=== PATIENT | female | born 1970 | race Caucasian/White ===

== ENCOUNTER → 2018-06-17 16:00 | Outpatient (CLI) | payer MEDICAID, SELFPAY ==
--- NOTE | 2018-06-17 15:57 | DI.REPORT_ITS ---
SYMPTOM/DIAGNOSIS: RT KNEE PAIN RIGHT KNEE: Three views. No acute fracture or dislocation is seen. Periarticular spurring is seen involving both the medial and lateral femoral tibial joint space. Well corticated osseous fragments are seen in the soft tissues lateral to the knee. These are nonspecific. They do not appear to be within the joint space. IMPRESSION: Mild degenerative changes of the right knee.
== END ==
PROVIDERS: PCP Physician Assistant Medical; Visit Provider Physician Assistant
DX: M25.561 Pain in right knee (principal); M17.11 Unilateral primary osteoarthritis, right knee; G89.29 Other chronic pain
CPT/HCPCS: 73562

== ENCOUNTER 2018-08-04 08:49 | Emergency (ER) | payer MEDICAID, SELFPAY ==
[2018-08-04 08:54] VITALS: BP 149/76; PULSE 73; RESP 16; TEMP 36.4; O2SAT 99
--- NOTE | 2018-08-04 09:24 | W.ED.GENAD ---
Discharge Plan Disposition Patient Disposition: HOME Condition: Stable Discharge Details Chief Complaint: Orthopedic Clinical Impression: Sprain of left wrist, Sprain of hand, left Primary Care Provider: Juanita Perez ED Provider: Ce Black Home Meds and New Rx's Prescriptions: Continue hydrochlorothiazide 25 MG tablet 25 mg PO DAILY RF: 0 bupropion HCl 300 MG tablet extended release 24 hr 450 mg PO DAILY RF: 0 buspirone 5 MG tablet 5 mg PO BID RF: 0 pregabalin [Lyrica] 100 MG capsule 100 mg PO HS RF: 0 zolpidem 12.5 MG tablet,ext release multiphase 12.5 mg PO HS RF: 0 loratadine 10 MG tablet 10 mg PO DAILY RF: 0 Discharge Instructions Instructions: Contusion in Adults (ED), Wrist Sprain (ED) Additional Instructions: Rest, ice, elevate left wrist as much as possible. Alternate Tylenol and Motrin as needed and directed for pain. Follow-up with your primary care doctor in 1 week for reevaluation. Return to the emergency department with any worsening or new concerning symptoms. Discharge Data Discharge Date/Time-TO BE ENTERED AT DEPARTURE: 08/04/18 09:30 Discharge Physician: Ce Black Medical Decision Making 48yo F w/ left wrist and hand pain for the past 10 days. 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 She denies left hand weakness or numbness. She denies any pain in left elbow or shoulder. She has some tenderness to palpation over the left dorsal wrist and hand but no evidence of trauma and normal to inspection. Neurovascular intact. No focal deficits. She did admit to some radiation of pain into the left fifth finger which could be radiation from patient but there is no focal deficit, elbow or wrist injury. Appears consistent likely with a strain likely from overuse as there is no evidence of trauma. Patient was offered x-ray but declines. She is only been taking Tylenol and Motrin once daily. She is instructed to take Motrin every 6 hours and Tylenol every 4 hours. She is instructed on ice, rest and will send home with wrist splint. She declines work note. Instructed to f/u with pcp as needed and instructed to return to the ER with any concerns. HPI General Mode of arrival: ambulatory. Date/Time Provider Initiated Documentation: 08/04/18 09:15. Limitations to Documentation: no limitations. Information obtained by: patient. HPI Narrative: Patient is a 48-year-old female presents with left wrist and hand pain for the past 10 days. She works as an ASSISTANT FRONT END MANAGER and does not recall specific injury but states she frequently lifts patients with a [employer] and sometimes hits her hand on equipment. She has been taking Tylenol and Motrin once daily without relief but has not taken it for the past few days. She denies any weakness or numbness in hand. She denies any pain in left shoulder or elbow. Past medical history: Depression, GERD, hypertension Surgical history: Cholecystectomy, knee surgery, shoulder surgery, tubal ligation, Carpal tunnel release b/l Social history: Smokes tobacco, rare alcohol, denies drugs Medications: BuSpar, hydrochlorthiazide, Lyrica, Ambien Allergies: None Related Data Home Medications Medication Instructions Recorded Confirmed bupropion HCl 450 mg PO DAILY 06/01/13 08/04/18 hydrochlorothiazide 25 mg PO DAILY 06/01/13 08/04/18 buspirone 5 mg PO BID 05/25/17 08/04/18 pregabalin [Lyrica] 100 mg PO HS 12/17/17 08/04/18 zolpidem 12.5 mg PO HS 12/17/17 08/04/18 loratadine 10 mg PO DAILY 05/08/18 08/04/18 Allergies Allergy/AdvReac Type Severity Reaction Status Date / Time No Known Allergies Allergy Unverified 05/08/18 00:24 General Stated Complaint: Orthopedic MARK: 5 Review of Systems Review of Systems All systems reviewed & are unremarkable except as noted in HPI and below Constitutional Denies chills, Denies excessive sweating, Denies fatigue, Denies fever(s), Denies weakness and Denies weight loss Eyes Reports system reviewed and no additional complaints, except as docu and Denies blurry vision ENT Denies vertigo, Denies dizziness, Denies otalgia, Denies nasal congestion, Denies sore throat and Denies throat swelling Cardiovascular Denies chest pain, Denies syncope, Denies rapid heart rate and Denies dyspnea Respiratory Denies dyspnea Gastrointestinal Denies abdominal pain, Denies diarrhea and Denies vomiting Genitourinary Denies hematuria, Denies dysuria and Denies flank pain Musculoskeletal Denies back pain, Reports arthralgias and Denies joint swelling Integumentary/Breasts Denies lesions and Denies rash Neurologic Denies behavioral changes, Denies confusion, Denies vertigo, Denies dizziness, Denies syncope and Denies weakness Psychiatric Denies behavioral changes, Denies confusion and Denies depression Endocrine Denies excessive sweating and Denies fatigue Hematologic/Lymphatic Denies easy bruising and Denies lymphadenopathy Allergic/Immunologic Denies throat swelling PFSH Family History Mother No problems noted. Father No problems noted. Medical History Depression Insomnia Morbid obesity hypertension Social History Smoking/Tobacco Use Status: Current every day Surgical History Cholecystectomy Ligation of fallopian tube Open Carpal Tunnel release Exam Const General: cooperative and healthy appearing Orientation: alert and awake HENMT Head: normal to inspection Ears: hearing grossly normal bilaterally and external ears normal General nose exam: external nose normal Face and sinus: normal facial exam Eyes General: appearance normal, both eyes and all related structures Eyelids: eyelids normal EOM: EOM intact bilaterally Neck Neck: normal visual inspection Resp Effort & Inspection: normal respiratory effort and able to speak in complete sentences Cardio Rate: regular rate Skin General skin exam: no rashes or lesions noted Neuro General: alert and awake Cognition: normal cognition Speech: speech normal Gait: normal gait Motor: muscle tone normal throughout, strength 5/5 throughout and other (Normal radial/median/ulnar nerve motor function bilaterally. ) Sensory Exam: no sensory deficits noted Extrem General: normal to inspection, full ROM and normal capillary refill Left upper extremity: wrist (Mild tenderness palpation on dorsal aspect but no evidence of ecchymosis, edema, deformity) and hand (Mild tenderness palpation on dorsal aspect but no ecchymosis, edema, erythema or evidence of trauma) Other: Left radial and ulnar pulses intact. Cap refill less than 2 seconds. Psych Appearance: grossly normal Mental Status: mental status grossly normal Speech and Movement: speech and movement normal Affect: normal affect Thought Process: normal Course Vital Signs Temperature 97.5 F L 08/04/18 08:54 Pulse 73 08/04/18 08:54 Respiratory Rate 16 08/04/18 08:54 Blood Pressure 149/76 H 08/04/18 08:54 Pulse Oximetry 99 08/04/18 08:54 Temperature 97.5 F L 08/04/18 08:54 Temperature Source Temporal Artery Scan 08/04/18 08:54 Pulse 73 08/04/18 08:54 Respiratory Rate 16 08/04/18 08:54 Respiratory Effort 08/04/18 08:56 Blood Pressure 149/76 H 08/04/18 08:54 Blood Pressure Position Sitting 08/04/18 08:54 Pulse Oximetry 99 08/04/18 08:54 Oxygen Delivery Method Room Air 08/04/18 08:54 Oxygen Flow Rate 0 08/04/18 08:54 Pain Level 5 08/04/18 08:54
--- NOTE | 2018-08-04 09:34 | ED.GENADUL_ITS ---
Discharge Plan Disposition Patient Disposition: HOME Condition: Stable Discharge Details Chief Complaint: Orthopedic Clinical Impression: Sprain of left wrist, Sprain of hand, left Primary Care Provider: Juanita Perez ED Provider: Ce Black Home Meds and New Rx's Prescriptions: Continue hydrochlorothiazide 25 MG tablet 25 mg PO DAILY RF: 0 bupropion HCl 300 MG tablet extended release 24 hr 450 mg PO DAILY RF: 0 buspirone 5 MG tablet 5 mg PO BID RF: 0 pregabalin [Lyrica] 100 MG capsule 100 mg PO HS RF: 0 zolpidem 12.5 MG tablet,ext release multiphase 12.5 mg PO HS RF: 0 loratadine 10 MG tablet 10 mg PO DAILY RF: 0 Discharge Instructions Instructions: Contusion in Adults (ED), Wrist Sprain (ED) Additional Instructions: Rest, ice, elevate left wrist as much as possible. Alternate Tylenol and Motrin as needed and directed for pain. Follow-up with your primary care doctor in 1 week for reevaluation. Return to the emergency department with any worsening or new concerning symptoms. Discharge Data Discharge Date/Time-TO BE ENTERED AT DEPARTURE: 08/04/18 09:30 Discharge Physician: Ce Black Medical Decision Making 48yo F w/ left wrist and hand pain for the past 10 days. 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 She denies left hand weakness or numbness. She denies any pain in left elbow or shoulder. She has some tenderness to palpation over the left dorsal wrist and hand but no evidence of trauma and normal to inspection. Neurovascular intact. No focal deficits. She did admit to some radiation of pain into the left fifth finger which could be radiation from patient but there is no focal deficit, elbow or wrist injury. Appears consistent likely with a strain likely from overuse as there is no evidence of trauma. Patient was offered x-ray but declines. She is only been taking Tylenol and Motrin once daily. She is instructed to take Motrin every 6 hours and Tylenol every 4 hours. She is instructed on ice, rest and will send home with wrist splint. She declines work note. Instructed to f/u with pcp as needed and instructed to return to the ER with any concerns. HPI General Mode of arrival: ambulatory . Date/Time Provider Initiated Documentation: 08/04/18 09:15 . Limitations to Documentation: no limitations . Information obtained by: patient . HPI Narrative: Patient is a 48-year-old female presents with left wrist and hand pain for the past 10 days. 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 She has been taking Tylenol and Motrin once daily without relief but has not taken it for the past few days. She denies any weakness or numbness in hand. She denies any pain in left shoulder or elbow. Past medical history: Depression, GERD, hypertension Surgical history: Cholecystectomy, knee surgery, shoulder surgery, tubal ligation, Carpal tunnel release b/l Social history: Smokes tobacco, rare alcohol, denies drugs Medications: BuSpar, hydrochlorthiazide, Lyrica, Ambien Allergies: None Related Data Home Medications Medication Instructions Recorded Confirmed bupropion HCl 450 mg PO DAILY 06/01/13 08/04/18 hydrochlorothiazide 25 mg PO DAILY 06/01/13 08/04/18 buspirone 5 mg PO BID 05/25/17 08/04/18 pregabalin [Lyrica] 100 mg PO HS 12/17/17 08/04/18 zolpidem 12.5 mg PO HS 12/17/17 08/04/18 loratadine 10 mg PO DAILY 05/08/18 08/04/18 Allergies Allergy/AdvReac Type Severity Reaction Status Date / Time No Known Allergies Allergy Unverified 05/08/18 00:24 General Stated Complaint: Orthopedic MARK: 5 Review of Systems Review of Systems All systems reviewed & are unremarkable except as noted in HPI and below Constitutional Denies chills, Denies excessive sweating, Denies fatigue, Denies fever(s), Denies weakness and Denies weight loss Eyes Reports system reviewed and no additional complaints, except as docu and Denies blurry vision ENT Denies vertigo, Denies dizziness, Denies otalgia, Denies nasal congestion, Denies sore throat and Denies throat swelling Cardiovascular Denies chest pain, Denies syncope, Denies rapid heart rate and Denies dyspnea Respiratory Denies dyspnea Gastrointestinal Denies abdominal pain, Denies diarrhea and Denies vomiting Genitourinary Denies hematuria, Denies dysuria and Denies flank pain Musculoskeletal Denies back pain, Reports arthralgias and Denies joint swelling Integumentary/Breasts Denies lesions and Denies rash Neurologic Denies behavioral changes, Denies confusion, Denies vertigo, Denies dizziness, Denies syncope and Denies weakness Psychiatric Denies behavioral changes, Denies confusion and Denies depression Endocrine Denies excessive sweating and Denies fatigue Hematologic/Lymphatic Denies easy bruising and Denies lymphadenopathy Allergic/Immunologic Denies throat swelling PFSH Family History Mother No problems noted. Father No problems noted. Medical History Depression Insomnia Morbid obesity hypertension Social History Smoking/Tobacco Use Status: Current every day Surgical History Cholecystectomy Ligation of fallopian tube Open Carpal Tunnel release Exam Const General: cooperative and healthy appearing Orientation: alert and awake HENMT Head: normal to inspection Ears: hearing grossly normal bilaterally and external ears normal General nose exam: external nose normal Face and sinus: normal facial exam Eyes General: appearance normal, both eyes and all related structures Eyelids: eyelids normal EOM: EOM intact bilaterally Neck Neck: normal visual inspection Resp Effort & Inspection: normal respiratory effort and able to speak in complete sentences Cardio Rate: regular rate Skin General skin exam: no rashes or lesions noted Neuro General: alert and awake Cognition: normal cognition Speech: speech normal Gait: normal gait Motor: muscle tone normal throughout, strength 5/5 throughout and other (Normal radial/median/ulnar nerve motor function bilaterally. ) Sensory Exam: no sensory deficits noted Extrem General: normal to inspection, full ROM and normal capillary refill Left upper extremity: wrist (Mild tenderness palpation on dorsal aspect but no evidence of ecchymosis, edema, deformity) and hand (Mild tenderness palpation on dorsal aspect but no ecchymosis, edema, erythema or evidence of trauma) Other: Left radial and ulnar pulses intact. Cap refill less than 2 seconds. Psych Appearance: grossly normal Mental Status: mental status grossly normal Speech and Movement: speech and movement normal Affect: normal affect Thought Process: normal Course Vital Signs Temperature 97.5 F L 08/04/18 08:54 Pulse 73 08/04/18 08:54 Respiratory Rate 16 08/04/18 08:54 Blood Pressure 149/76 H 08/04/18 08:54 Pulse Oximetry 99 08/04/18 08:54 Temperature 97.5 F L 08/04/18 08:54 Temperature Source Temporal Artery Scan 08/04/18 08:54 Pulse 73 08/04/18 08:54 Respiratory Rate 16 08/04/18 08:54 Respiratory Effort 08/04/18 08:56 Blood Pressure 149/76 H 08/04/18 08:54 Blood Pressure Position Sitting 08/04/18 08:54 Pulse Oximetry 99 08/04/18 08:54 Oxygen Delivery Method Room Air 08/04/18 08:54 Oxygen Flow Rate 0 08/04/18 08:54 Pain Level 5 08/04/18 08:54
== END 2018-08-04 09:30 | disposition home or self-care (01) ==
PROVIDERS: Emergency Provider Physician Assistant; PCP Physician Assistant Medical
DX: M70.842 Other soft tissue disorders related to use, overuse and pressure, left hand (principal); M70.832 Other soft tissue disorders related to use, overuse and pressure, left forearm; X50.3XXA Overexertion from repetitive movements, initial encounter; I10 Essential (primary) hypertension
CPT/HCPCS: 29125; 99283; L3908

== ENCOUNTER 2018-12-16 11:49 | Outpatient (REF) | payer MEDICAID, SELFPAY ==
[2018-12-16 22:24] LABS: ALT 40 U/L (12-78); AST 22 U/L (15-37); Albumin 3.4 g/dL (3.4-5.0); Alkaline Phosphatase 106 U/L (46-116); Anion Gap 6.4 mmol/L (3-11); BUN 12 mg/dL (7-18); Bilirubin, Total 0.1 mg/dL (0.2-1.0); CO2 29.6 mmol/L (21.0-32.0); Calcium 8.5 mg/dL (8.5-10.1); Chloride 105 mmol/L (98-107); Cholesterol 220 mg/dL (50-200); Glucose 113 mg/dL (70-100); HDL Cholesterol 39 mg/dL (40-60); LDL CHOLESTEROL 152 mg/dL (<100); Potassium 4.6 mmol/L (3.5-5.1); Sodium 141 mmol/L (136-145); Total Protein 7.2 g/dL (6.4-8.2); Triglyceride 242 mg/dL (30-150)
== END 2018-12-16 12:09 ==
LOC: NCHCN 11:49
PROVIDERS: PCP Physician Assistant Medical; Visit Provider Physician Assistant Medical
DX: E78.5 Hyperlipidemia, unspecified (principal); I10 Essential (primary) hypertension
CPT/HCPCS: 80053; 80061; 83721

== ENCOUNTER 2019-03-24 18:31 | Outpatient (REF) | payer MEDICAID, SELFPAY ==
[2019-03-24 22:12] LABS: ALT 31 U/L (12-78); AST 19 U/L (15-37); Albumin 3.7 g/dL (3.4-5.0); Alkaline Phosphatase 97 U/L (46-116); Anion Gap 9.8 mmol/L (3-11); BUN 9 mg/dL (7-18); Bilirubin, Total 0.2 mg/dL (0.2-1.0); CO2 31.2 mmol/L (21.0-32.0); CREATININE 0.65 mg/dL (0.55-1.02); Calcium 9.2 mg/dL (8.5-10.1); Calculated LDL 103; Chloride 100 mmol/L (98-107); Cholesterol 168 mg/dL (50-200); Glucose 99 mg/dL (70-100); HDL Cholesterol 42 mg/dL (40-60); Potassium 4.1 mmol/L (3.5-5.1); Sodium 141 mmol/L (136-145); Total Protein 7.5 g/dL (6.4-8.2); Triglyceride 119 mg/dL (30-150)
== END 2019-03-24 18:51 ==
LOC: NCHCN 18:31
PROVIDERS: PCP Physician Assistant Medical; Visit Provider Physician Assistant Medical
DX: E78.5 Hyperlipidemia, unspecified (principal)
CPT/HCPCS: 80053; 80061; 83721

== ENCOUNTER 2019-11-08 14:01 | Emergency (ER) | payer OTHER, SELFPAY ==
[2019-11-08 14:08] VITALS: BP 154/88; PULSE 81; RESP 18; TEMP 36.6; O2SAT 99
--- NOTE | 2019-11-08 14:43 | ED.GENADUL_ITS ---
Discharge Plan Disposition Patient Disposition: HOME Condition: Improving Discharge Details Chief Complaint: Orthopedic Clinical Impression: Contusion of foot Primary Care Provider: Juanita Perez ED Provider: Gamaliel Elena Home Meds and New Rx's Prescriptions: Continued hydrochlorothiazide 25 MG tablet 25 mg PO DAILY RF: 0 bupropion HCl 300 MG tablet extended release 24 hr 450 mg PO DAILY RF: 0 buspirone 5 MG tablet 5 mg PO BID RF: 0 pregabalin [Lyrica] 100 MG capsule 150 mg PO HS RF: 0 zolpidem 12.5 MG tablet,ext release multiphase 12.5 mg PO HS RF: 0 omeprazole 40 mg Capsule,Delayed Release(Dr/Ec) 40 mg PO DAILY RF: 0 tramadol 100 mg Tablet Extended Release 24 Hr 100 mg PO BID RF: 0 Discharge Instructions Instructions: Foot Contusion (ED) Additional Instructions: You were seen in the emergency department today for evaluation of an injury to your foot. You should rest and elevate it as much as possible. Ice it. Follow-up with your primary care provider if not getting better in the next 3 to 5 days. Return to the emergency department immediately if you develop any numbness, fevers, or for any other concerning or worsening symptoms at all. Medical Decision Making This patient is a 49-year-old female who presents to the emergency department with chief complaint of foot pain. Based on the history, exam, this is most likely due to a contusion. There is no evidence of fracture on x-ray. No evidence of ischemia, gout, DVT, compartment syndrome. Therefore, the patient will be discharged home. She will need follow-up with her primary care provider. She agrees with the outpatient treatment plan, was given return precautions and discharge instructions. HPI I hurt my foot. This patient is a 49-year-old female who presents with right foot pain. She states that about 1 week ago she tripped injuring her left ankle but also slammed her right foot down. She complains of pain along the lateral and medial foot. She then hurt it again today. She feels sharp pain in those areas. The pain does not radiate. Walking makes it worse. Nothing has really made it better. She denies any numbness or tingling. She actually has been sick recently with intermittent chest pain for which she is already seen her primary care provider, cardiology and is scheduled for a stress test. She is not having chest pain at this time. General Date/Time Provider Initiated Documentation: 11/08/19 14:12 . Related Data Home Medications Medication Instructions Recorded Confirmed bupropion HCl 450 mg PO DAILY 06/01/13 11/08/19 hydrochlorothiazide 25 mg PO DAILY 06/01/13 11/08/19 buspirone 5 mg PO BID 05/25/17 11/08/19 pregabalin [Lyrica] 150 mg PO HS 12/17/17 11/08/19 zolpidem 12.5 mg PO HS 12/17/17 11/08/19 omeprazole 40 mg PO DAILY 11/08/19 11/08/19 tramadol 100 mg PO BID 11/08/19 11/08/19 Allergies Allergy/AdvReac Type Severity Reaction Status Date / Time No Known Allergies Allergy Unverified 11/08/19 14:13 General Stated Complaint: Orthopedic MARK: 4 Review of Systems Narrative: Gen: no fevers. Card: Intermittent chest pain. Resp: No cough, difficulty breathing. Abd: no vomiting, abd pain. The rest of the 10 point review of systems is negative except as described in the HPI and above in the ROS. [facility] Medical History Depression hypertension Insomnia Morbid obesity Surgical History Cholecystectomy Ligation of fallopian tube Open Carpal Tunnel release Family History Mother No problems noted. Father No problems noted. Social History Smoking/Tobacco Use Status: Current every day Alcohol Intake: never Drug use: Never Substance use type: does not use Do you feel safe in your relationship?: Yes Exam Narrative Exam Narrative: Gen: no acute distress, alert. Neck: normal ROM. Lung: no respiratory distress. Card: RRR. Lower extremity: Right foot: 2+ DP pulse. Normal distal sensation, normal range of motion of the ankle and foot. No swelling. No erythema. No wounds. There is mild tenderness along the lateral proximal and distal foot. Neuro: speech normal, no gross motor deficits. Psych: alert and oriented to person, place time, normal affect. Skin: warm, intact. Course Vital Signs Vital signs: Vital Signs Temperature 36.6 C 11/08/19 14:08 Pulse 81 11/08/19 14:08 Respiratory Rate 18 11/08/19 14:08 Blood Pressure 154/88 H 11/08/19 14:08 Pulse Oximetry 99 11/08/19 14:08 Temperature 36.6 C 11/08/19 14:08 Temperature Source Tympanic 11/08/19 14:08 Pulse 81 11/08/19 14:08 Respiratory Rate 18 11/08/19 14:08 Respiratory Effort 11/08/19 14:17 Blood Pressure 154/88 H 11/08/19 14:08 Blood Pressure Position Sitting 11/08/19 14:08 Pulse Oximetry 99 11/08/19 14:08 Oxygen Delivery Method Room Air 11/08/19 14:08 Oxygen Flow Rate 0 11/08/19 14:08 Pain Level 10 11/08/19 14:08 Comment 11/08/19 14:08
--- NOTE | 2019-11-08 14:45 | DI.RAD_ITS ---
EXAM: XR FOOT RT COMPLETE CLINICAL HISTORY: fall. TECHNIQUE: COMPARISON: No exams were available for comparison FINDINGS: Osteophytes noted at attachments of plantar fascia and Achilles tendon on the calcaneus. Midfoot deg enerative changes noted most marked at medial cuneiform 1st metatarsal joint. No evidence of acute f racture. IMPRESSION:
--- NOTE | 2019-11-08 14:46 | DI.RAD_ITS ---
EXAM: XR ANKLE RT COMPLETE CLINICAL HISTORY: fall. TECHNIQUE: COMPARISON: No exams were available for comparison FINDINGS: Three views were obtained. The ankle mortise appears fairly well maintained. Prominent osteophytes of Achilles and plantar fascia attachments on the calcaneus noted. Minimal degenerative changes invo lving the joints of the hindfoot and midfoot. No evidence of acute fracture. IMPRESSION: No evidence of acute fracture.
[2019-11-08] MEDS: Acetaminophen 325 MG TAB 650 MG PO (15:07)
[2019-11-08] MEDS: Ibuprofen 400 MG TAB PO (15:08)
--- NOTE | 2019-11-08 15:24 | DI.VRAD_ITS ---
PROCEDURE INFORMATION: Exam: XR Right Foot Complete Exam date and time: 11/08/2019 2:49 PM Age: 49 years old Clinical indication: Other: Fall TECHNIQUE: Imaging protocol: XR Right foot. Views: 3 or more views. COMPARISON: No relevant prior studies available. FINDINGS: Bones/joints: There is no evidence of acute fracture. There is no evidence of joint malalignment or dislocation. There is no evidence of a joint effusion. Sequelae of prior injury at the base of the great toe distal phalanx. Mild degenerative changes of the 1st TMT. Mild degenerative changes of the dorsal midfoot. Mild degenerative changes of the interphalangeal joints. Calcaneal plantar enthesophyte. Posterior calcaneal enthesophyte at the attachment of the Achilles tendon. Soft tissues: Normal. IMPRESSION: No acute osseous findings. Dictated and Authenticated by: Viral Newman MD. Ordering:BAKARI Alston MD
--- NOTE | 2019-11-08 15:26 | DI.VRAD_ITS ---
PROCEDURE INFORMATION: Exam: XR Right Ankle Exam date and time: 11/08/2019 2:33 PM Age: 49 years old Clinical indication: Other: Fall TECHNIQUE: Imaging protocol: XR Right ankle. Views: 3 or more views. COMPARISON: No relevant prior studies available. FINDINGS: Bones/joints: There is no evidence of acute fracture. Well corticated ossific density inferior to the medial malleolus likely sequelae of prior injury. Dorsal midfoot degenerative changes. Calcaneal plantar enthesophyte. Posterior calcaneal enthesophyte at the attachment of the Achilles tendon. There is no evidence of a joint effusion. There is no evidence of joint malalignment or dislocation. Soft tissues: Likely dermal calcification. IMPRESSION: 1. No acute osseous findings. 2. Degenerative changes and sequelae of prior injury as above. Dictated and Authenticated by: Viral Newman MD. Ordering:BAKARI Alston MD
== END 2019-11-08 15:33 | disposition home or self-care (01) ==
PROVIDERS: Emergency Provider Emergency Medicine; PCP Physician Assistant Medical
DX: S90.31XA Contusion of right foot, initial encounter (principal); X58.XXXA Exposure to other specified factors, initial encounter; I10 Essential (primary) hypertension
CPT/HCPCS: 99284; 73610; 73630; 99283; E0114; L1902

== ENCOUNTER 2019-11-25 01:59 | Outpatient (CLI) | payer OTHER, SELFPAY ==
--- NOTE | 2019-11-25 14:40 | DI.MRI_ITS ---
EXAM: MR LOWER JOINT RT WO CLINICAL HISTORY: right ankle and foot pain with weight bearing M79.671 PAIN RT FOOT, M25.571. TECHNIQUE: Multiplanar multisequence MRI was performed. COMPARISON: XR FOOT RT COMPLETE from 11/08/2019 FINDINGS: MRI foot: Bones: Mild degenerative signal changes are seen at the tarsal metatarsal joints and the tarsal joint s in the midfoot. No evidence of an occult fracture or avascular necrosis is present. Tendons: Unremarkable. Ligaments: Unremarkable. Soft tissues: Unremarkable. No evidence of a soft tissue mass or focal fluid collection. Plantar fascia: Unremarkable. MRI ankle: Bones: There are mild degenerative signal changes seen at the tarsal joints. No evidence of an occult fracture or avascular necrosis is seen. Tendons: There is thickening and increased signal seen within the peroneus longus tendon as it passes beneath the calcaneus. It is markedly thinned on the plantar surface of the foot suspicious for part ial tear. There is a small amount of fluid surrounding the tendon on the plantar surface of the foot. The remaining tendons of the ankle appear intact. Achilles tendon: Unremarkable. Plantar fascia: There is thickening and increased signal in the plantar fascia at its insertion site onto the calcaneus. There is edema seen in the plantar surface of the calcaneus in this region. Findi ngs are consistent with plantar fasciitis. Partial tear is suspected. Ligaments: Unremarkable. Soft tissues: Edema seen in the soft tissues about the lateral ankle. No soft tissue mass is apprecia carlotta. IMPRESSION: 1. Findings suspicious for a large partial tear of the peroneus longus tendon on the plantar surface of the foot. 2. Plantar fasciitis. Findings suspicious for partial tear of the plantar fascia at its insertion on to the calcaneus. 3. Edema in the soft tissues of the lateral ankle. 4. Degenerative changes in the foot.
== END 2019-11-25 02:19 ==
PROVIDERS: PCP Physician Assistant Medical; Visit Provider Nurse Practitioner Family
DX: M79.671 Pain in right foot (principal); M25.571 Pain in right ankle and joints of right foot; M72.2 Plantar fascial fibromatosis; R60.0 Localized edema; M19.071 Primary osteoarthritis, right ankle and foot
CPT/HCPCS: 73721; 73718

== ENCOUNTER 2019-12-07 06:35 | Emergency (ER) | payer OTHER, SELFPAY ==
[2019-12-07] VITALS (37 sets, daily range): BP systolic 97–141; BP diastolic 53–98; PULSE 60–86; RESP 7–23; TEMP 36.8; O2SAT 95–100
[2019-12-07] MEDS: Aspirin 81 MG CHEW 324 MG CH (06:53)
--- NOTE | 2019-12-07 06:54 | ED.GENADUL_ITS ---
Discharge Plan Disposition Patient Disposition: HOME Condition: Stable Discharge Details Chief Complaint: Chest Pain Clinical Impression: Chest pain Primary Care Provider: Juanita Perez ED Provider: Bev Green Home Meds and New Rx's Prescriptions: Continued hydrochlorothiazide 25 MG tablet 25 mg PO DAILY RF: 0 bupropion HCl 300 MG tablet extended release 24 hr 450 mg PO DAILY RF: 0 buspirone 5 MG tablet 5 mg PO BID RF: 0 pregabalin [Lyrica] 100 MG capsule 150 mg PO HS RF: 0 zolpidem 12.5 MG tablet,ext release multiphase 12.5 mg PO HS RF: 0 omeprazole 40 mg Capsule,Delayed Release(Dr/Ec) 40 mg PO DAILY RF: 0 tramadol 100 mg Tablet Extended Release 24 Hr 100 mg PO BID RF: 0 rosuvastatin [Crestor] 5 mg Tablet 5 mg PO DAILY RF: 0 Discharge Instructions Instructions: Chest Pain (ED) Additional Instructions: Encourage water intake. Please keep your upcoming appointment with stress test. If you develop difficulty breathing, increased pain, shortness of breath or the new/worsening symptoms please seek care urgently once again. Otherwise, please follow-up with primary care this week for reevaluation. Referrals: Juanita Perez PA [Primary Care Provider] - Medical Decision Making <Jonnathan Jones MD - Last Filed: 12/07/19 06:59> 49 yo female with hx of hld and smoker comes in with chest pain. She states she has had it intermittently for a year and is scheduled to have a stress test 12/16. This morning she had chest pressure lasting a few seconds without radiation and no vomit or diaphoresis. She has no prior cardiac history. She currently has no pain. Her heart score is 3, will send troponin. No tearing back pain and normal vascular exam so doubt dissection. Wells score low over 50 so can't use perc, will obtain d dimer to eval for PE. Differential Diagnosis Differential Diagnosis: nstemi, angina, PE Medical Records Medical records reviewed: Yes I reviewed the patient's medical records. Lab Data Lab results reviewed: Yes I reviewed the patient's lab results. ECG Data Attestation: I personally reviewed and interpreted this ECG (s) as follows: Prior ECG tracings: not available for review Interpretation: sinus rhythm, rate of 71, pr 130, no acute st t wave ischemic findings <FAISAL Wall - Last Filed: 12/07/19 10:25> Care transition to myself from Dr. Jones with imaging and repeat troponin pending. Please see his initial note documentation regarding this patient's presentation. In brief, she presented with 1 year of intermittent chest discomfort. Had missed appointment for stress testing. Came in today after having few moments of chest pain last night. Currently asymptomatic. Initial evaluation significant for d-dimer of 739. CT for PE protocol was ordered. Initial troponin was less than 0.05. FINDINGS: Lungs: Unremarkable. No consolidation. Pleural space: Unremarkable. No pleural effusion. No pneumothorax. Heart/Mediastinum: Unremarkable. No cardiomegaly. Bones/joints: Degenerative changes in the thoracic spine Other findings: Overlying EKG wires IMPRESSION: No acute process FINDINGS: Pulmonary arteries: No evidence of pulmonary embolus to the segmental level. Aorta: No aneurysm of the aorta. No dissection of the aorta. Lungs: Unremarkable. No consolidation. No masses. Pleural space: Unremarkable. No pneumothorax. No pleural effusion. Heart: Unremarkable. No cardiomegaly. No pericardial effusion. Lymph nodes: Unremarkable. No enlarged lymph nodes. Bones/joints: Unremarkable. No acute fracture. Soft tissues: Unremarkable. IMPRESSION: 1. No evidence of pulmonary embolus to the segmental level. 2. No aneurysm of the aorta. 3. No dissection of the aorta. Repeat troponin is less than 0.05. Discussed these findings with the patient. She is been asymptomatic since being here. She has a upcoming appointment for stress test. She was given strict return precautions. I have asked that she follow-up with primary care this week for reevaluation. All of her questions or concerns were addressed and she is in agreement this plan. HPI <Jonnathan Jones MD - Last Filed: 12/07/19 06:59> General Mode of arrival: ambulatory . Date/Time Provider Initiated Documentation: 12/07/19 06:40 . Limitations to Documentation: no limitations . Information obtained by: patient . History of Present Illness 49 year old F presents to the emergency department with the chief complaint of chest fredo, described as moderate, Quality is described as aching, and is localized to the chest. Patient denies radiation to back. Patient started experiencing this hour(s) (3) and it has been intermittent. No relieving factors improve symptom(s), No exacerbating factors reported . Patient notes no other symptoms.. Patient did receive the following treatments prior to arrival, none Related Data Home Medications Medication Instructions Recorded Confirmed bupropion HCl 450 mg PO DAILY 06/01/13 12/07/19 hydrochlorothiazide 25 mg PO DAILY 06/01/13 12/07/19 buspirone 5 mg PO BID 05/25/17 12/07/19 pregabalin [Lyrica] 150 mg PO HS 12/17/17 12/07/19 zolpidem 12.5 mg PO HS 12/17/17 12/07/19 omeprazole 40 mg PO DAILY 11/08/19 12/07/19 tramadol 100 mg PO BID 11/08/19 12/07/19 rosuvastatin [Crestor] 5 mg PO DAILY 12/07/19 12/07/19 Allergies Allergy/AdvReac Type Severity Reaction Status Date / Time No Known Allergies Allergy Verified 12/07/19 06:48 General Stated Complaint: Chest Pain MARK: 2 Review of Systems <Jonnathan Jones MD - Last Filed: 12/07/19 06:59> All systems reviewed & are unremarkable except as noted in HPI and below Constitutional Constitutional: Denies chills and Denies fever(s) ENT Ears, Nose, Mouth, and Throat: Denies change in voice Cardiovascular Cardiovascular: Denies dyspnea Respiratory Respiratory: Denies cough and Denies dyspnea Gastrointestinal Gastrointestinal: Denies abdominal pain, Denies nausea and Denies vomiting Musculoskeletal Musculoskeletal: Denies joint swelling Psychiatric Psychiatric: Denies depression [facility] <Jonnathan Jones MD - Last Filed: 12/07/19 06:59> Social History Smoking/Tobacco Use Status: Current every day Alcohol Intake: never Drug use: Never Substance use type: does not use Do you feel safe at home: Yes Do you feel safe in your relationship?: Yes Exam <Jonnathan Jones MD - Last Filed: 12/07/19 06:59> Const General: no acute distress Orientation: alert HENGA Head: normal to inspection Ears: external ears normal General nose exam: external nose normal Mouth: moist mucous membranes Eyes General: appearance normal, both eyes and all related structures Neck Neck: normal visual inspection Resp Effort & Inspection: normal respiratory effort and able to speak in complete sentences Cardio Rate: regular rate Skin General skin exam: no rashes or lesions noted Neuro General: alert and oriented x3 Extrem General: normal to inspection Psych Mental Status: mental status grossly normal Course <Jonnathan Jones MD - Last Filed: 12/07/19 06:59> Vital Signs Vital signs: Vital Signs Temperature 36.8 C 12/07/19 06:46 Pulse 70 12/07/19 06:46 Respiratory Rate 21 12/07/19 06:46 Blood Pressure 141/72 H 12/07/19 06:46 Pulse Oximetry 98 12/07/19 06:46 Temperature 36.8 C 12/07/19 06:46 Temperature Source Temporal Artery Scan 12/07/19 06:46 Pulse 70 12/07/19 06:46 Respiratory Rate 20 12/07/19 06:49 Respiratory Effort Non-Labored 12/07/19 06:49 Respiratory Depth Normal 12/07/19 06:49 Respiratory Pattern Normal 12/07/19 06:49 Blood Pressure 141/72 H 12/07/19 06:46 Blood Pressure Position Sitting 12/07/19 06:46 Pulse Oximetry 98 12/07/19 06:46 Oxygen Delivery Method Room Air 12/07/19 06:46 Oxygen Flow Rate 0 12/07/19 06:46 Pain Level 0 12/07/19 06:46 Sign Out <Jonnathan Jones MD - Last Filed: 12/07/19 06:59> Sign Out Data: Sign Out Comment: follow up on imaging results and lab results, if everything negative can likely be d/c'd Last updated by Jonnathan Jones MD at 12/07/19 07:44
[2019-12-07 07:01] LABS: Abs Immature Grans 0.05 k/cumm (0.0-0.09); Absolute Basophil Count 0.03 k/cumm (0.0-0.2); Absolute Eosinophil Count 0.21 k/cumm (0.0-0.7); Absolute Lymphocyte Count 2.63 k/cumm (1.2-3.4); Absolute Monocyte Count 0.63 k/cumm (0.11-0.7); Absolute Neutrophil Count 7.45 k/cumm (1.2-6.7); Basophils % 0.3; Eosinophils % 1.9; HCT 42.1 % (36.0-46.0); HGB 13.8 g/dL (12.0-15.5); Immature Grans % 0.5 %; Lymphocytes % 23.9; Mean Corp. HGB Concentration 32.8 g/dL (32.0-36.0); Mean Corpuscular Hemoglobin 29.4 pg (27.0-33.0); Mean Corpuscular Volume 89.8 fL (80-95); Mean Platelet Volume 9.6 fL (8.0-11.0); Monocytes % 5.7; Neutrophils % 67.7; Platelet Count 361 x1000/uL (130-400); RBC 4.69 m/cumm (4.00-5.20)
[2019-12-07 07:19] LABS: PTT Activated 27.8 sec (21.0-31.4); Prothrombin Time 9.6 sec (9.3-11.0)
--- NOTE | 2019-12-07 07:30 | DI.CT_ITS ---
EXAM: CT CHEST PE CTA CLINICAL HISTORY: chest pain, elevated d dimer. TECHNIQUE: Imaging Protocol: Axial CT angiography was performed with multi-slice acquisition and mu lti-planar and/or 3D reconstructions. CONTRAST MATERIAL: Intravenous: Omnipaque 350 Contrast volume:86 mL COMPARISON: SCREENING TRESSA MAMMO W/CAD DIGI from 02/08/2009 ABD FLAT UPRIGHT PA CHEST from 03/27/2011 SCREENING TRESSA MAMMO W/CAD DIGI from 04/26/2012 CT CHEST PE CTA from 12/07/2019 FINDINGS: Pulmonary Arteries: No evidence of filling defect to suggest pulmonary emboli. Tracheobronchial tree: Patent where visualized. Mediastinum and Valerie: No dominant adenopathy or fluid collection. Pulmonary parenchyma: Small nodular infiltrate in the lateral aspect of the right upper lobe. No arc hitectural distortion. Pleura: No effusion or pneumothorax. Heart: The heart is not dilated. No coronary artery calcifications are seen. No right heart strain or pericardial effusion. Aorta: Thoracic aorta non-dilated. No thoracic dissection. Upper abdomen: Status post cholecystectomy. Bones: Degenerative changes. Soft tissues: There is an ovoid density in the outer aspect of the right breast measuring 2.1 x 1.1. This corresponds to the well-circumscribed density seen on the mammograms dated 2008 and 2011. IMPRESSION: 1. No evidence of pulmonary embolism, thoracic aortic dissection or aneurysm. 2. Small infiltrate in the lateral aspect of the right upper lobe. DATA REPOSITORY: All CT scans at this facility are submitted to the National Radiology Data Registry (NRDR) Dose Index Registry (DIR) with the [employer] (ACR). RADIATION OPTIMIZATION: All CT scans at this facility use at least one of these dose optimization te chniques: automated exposure control; mA and/or kV adjustment per patient size (includes targeted exa ms where dose is matched to clinical indication); or iterative reconstruction.
--- NOTE | 2019-12-07 07:32 | DI.RAD_ITS ---
EXAM: XR PORTABLE CHEST AP CLINICAL HISTORY: chest pain. TECHNIQUE: 2D digital imaging was performed. COMPARISON: ABD FLAT UPRIGHT PA CHEST from 03/27/2011 FINDINGS: LUNGS: Clear. No pleural abnormality seen. HEART: Normal. MEDIASTINUM: Normal. OTHER FINDINGS: None. IMPRESSION: No acute pulmonary findings.
[2019-12-07 07:34] LABS: D-Dimer 739 ng/mlFEU (<500)
[2019-12-07] MEDS: Omnipaque 350 MG/ML 100 ML BTL IJ (07:44)
[2019-12-07 07:47] LABS: ALT 28 U/L (14-59); AST 17 U/L (15-37); Albumin 3.5 g/dL (3.4-5.0); Alkaline Phosphatase 102 U/L (46-116); BUN 12 mg/dL (7-18); Bilirubin, Total 0.2 mg/dL (0.2-1.0); Chloride 101 mmol/L (98-107); Glucose 118 mg/dL (74-106); Lipase 83 U/L (73-393); Magnesium 1.9 mg/dL (1.8-2.4); Potassium 4.2 mmol/L (3.5-5.1); Sodium 140 mmol/L (136-145); Total Protein 8.2 g/dL (6.4-8.2)
[2019-12-07] MEDS: Normal Saline - Diluent 50 ML VIAL IV (07:47)
[2019-12-07 07:48] LABS: Troponin I < 0.05 ng/Ml (<0.06)
--- NOTE | 2019-12-07 08:08 | DI.VRAD_ITS ---
PROCEDURE INFORMATION: Exam: XR Chest, 1 View Exam date and time: 12/07/2019 7:30 AM Age: 49 years old Clinical indication: Type not specified; Patient HX: Chest pain months, PT sts progressively getting worse. TECHNIQUE: Imaging protocol: XR of the chest Views: 1 view. COMPARISON: No relevant prior studies available. FINDINGS: Lungs: Unremarkable. No consolidation. Pleural space: Unremarkable. No pleural effusion. No pneumothorax. Heart/Mediastinum: Unremarkable. No cardiomegaly. Bones/joints: Degenerative changes in the thoracic spine Other findings: Overlying EKG wires IMPRESSION: No acute process Dictated and Authenticated by: Yimi Herndon MD. Ordering:MADELINE De Santiago MD
--- NOTE | 2019-12-07 08:26 | DI.VRAD_ITS ---
PROCEDURE INFORMATION: Exam: CT Angiography Chest With Contrast Exam date and time: 12/07/2019 7:37 AM Age: 49 years old Clinical indication: Other: Chest pain, elevated d dimer TECHNIQUE: Imaging protocol: Computed tomographic angiography of the chest with intravenous contrast. 3D rendering: MIP and/or 3D reconstructed images were created by the technologist. Radiation optimization: All CT scans at this facility use at least one of these dose optimization techniques: automated exposure control; mA and/or kV adjustment per patient size (includes targeted exams where dose is matched to clinical indication); or iterative reconstruction. Contrast material: OMNIPAQUE 350; Contrast volume: 86 ml; Contrast route: IV; COMPARISON: XR PORTABLE CHEST AP 12/07/2019 7:28 AM FINDINGS: Pulmonary arteries: No evidence of pulmonary embolus to the segmental level. Aorta: No aneurysm of the aorta. No dissection of the aorta. Lungs: Unremarkable. No consolidation. No masses. Pleural space: Unremarkable. No pneumothorax. No pleural effusion. Heart: Unremarkable. No cardiomegaly. No pericardial effusion. Lymph nodes: Unremarkable. No enlarged lymph nodes. Bones/joints: Unremarkable. No acute fracture. Soft tissues: Unremarkable. IMPRESSION: 1. No evidence of pulmonary embolus to the segmental level. 2. No aneurysm of the aorta. 3. No dissection of the aorta. Dictated and Authenticated by: Yimi Herndon MD. Ordering:MADELINE De Santiago MD
[2019-12-07 10:16] LABS: Troponin I < 0.05 ng/Ml (<0.06)
== END 2019-12-07 10:48 | disposition home or self-care (01) ==
PROVIDERS: Emergency Medicine; Emergency Provider Physician Assistant; PCP Physician Assistant Medical
DX: R07.9 Chest pain, unspecified (principal); R79.1 Abnormal coagulation profile
CPT/HCPCS: 36415; 71275; 80053; 83690; 93005; 99285; 71045; 83735; 84484; 85025; 85379; 85610; 85730; 93010; 99284; J3490

== ENCOUNTER 2019-12-16 01:26 | Outpatient (CLI) | payer OTHER, SELFPAY ==
--- NOTE | 2019-12-16 09:15 | DI.NM_ITS ---
APPROVED REPORT Exam: Exercise Treadmill Patient Location: Out-Patient Room/Bed: Stress Nurse: Liz Webster RN BMI: 43.57 Baseline Rhythm: Sinus Rhythm Indications: Patient testing today for further risk stratification. She reports she has had intermitt ent midsternal chest pain (mostly when lying down) for approximately 1 year now. She states this ches t pain is across her chest and also has tingling down both arms, ???like they fell asleep???, and occ asionally diaphoretic. The pain usually lasts approximately 2-8 minutes, longest episode was approxim ately 20 minutes, and goes away when she sits down. Medical History Medical History: Depression, Obesity , GERD Cardiac Medications: Crestor, Hydrochlorothiazide. Allergies: Azithromycin Cardiac Risk Factors: FHX of CAD, HTN, Hyperlipidemia, Smoking Previous Cardiac Procedures: None Pretest Chest Pain Characteristics: No chest pain Exercise History: Physically active Physical Disabilities: Right Leg (wearing walking surgical boot) Lung Sounds: Clear to auscultation Heart Sounds: Regular Stress Test Details Test: Pharmacologic stress testing performed using 0.4 mg of regadenoson per 5 mL given IV over 10 s econds. Reason for pharmacologic stress test: physical limitation. Nuclear Acquisition: Rest Tc-99m/Stress Tc-99m 1 day Rest Isotope: Tc-99m Sestamibi. Dose: 11.5 Date: 12/16/2019 Injection Time: 0900 Stress Isotope: Tc-99m Sestamibi. Dose: 37.0 Date: 12/16/2019 Injection Time: 1037 HR Resting HR Supine: 61 bpm Max Heart Rate (APMHR): 169 bpm Target HR (85% APMHR): 143 bpm Max HR Achieved: 94 bpm % of APMHR: 55 BP Resting BP Supine: 132/90 mmHg Max BP: 132/90 mmHg ECG Resting ECG: Sinus Rhythm Stress ECG: Sinus Rhythm ST Change: Normal Arrhythmia: None Recovery ECG: Sinus Rhythm Recovery ST Change: Normal Recovery Arrhythmia: None Clinical Reason for Termination: Fatigue, ST changes, Chest pain/Anginal equivalent Stress Symptoms: Midsternal chest pain (3/10) at 1 minute 17 seconds post Lexiscan injection, complet melo gone by 3 minutes 29 seconds post Lexiscan injection. Stress ECG Conclusion 1. There is no evidence of ischemia on the ECG portion of the exam. Protocol Used: Regadenoson Stress Test Summary STAGE HR BP Symptoms NOTES Supine 61 132/90 1 min post Lexiscan injection 83 110/70 3 min post Lexiscan injection 81 122/80 6 min post Lexiscan injection 77 122/70 9 min post Lexiscan injection 12 min post Lexiscan injection 15 min post Lexiscan injection MPI Conclusion Ejection fraction with stress was 61%. There were no wall motion abnormalities. There was no evidence of ischemia on the imaging portion of this exam. This represents a normal SPECT stress test. Radiologist Interpretation Radiologist agrees with Rhinestone Setter's Interpretation. Radiologist Interpretation by: Troy Garcia MD Interpretation Date/Time: 12/16/2019 12:44:10
[2019-12-16] MEDS: Regadenoson 0.4 MG/5 ML SYR IVP (11:13)
== END 2019-12-16 01:46 ==
PROVIDERS: PCP Physician Assistant Medical; Visit Provider Physician Assistant Medical
DX: R07.89 Other chest pain (principal); R20.2 Paresthesia of skin; R61 Generalized hyperhidrosis; I10 Essential (primary) hypertension; E78.5 Hyperlipidemia, unspecified; F17.210 Nicotine dependence, cigarettes, uncomplicated
CPT/HCPCS: 78452; 93017; J2785

== ENCOUNTER 2020-04-05 11:39 | Outpatient (REF) | payer OTHER, SELFPAY ==
[2020-04-05 20:35] LABS: ALT 33 U/L (14-59); AST 18 U/L (15-37); Albumin 4.2 g/dL (3.4-5.0); Alkaline Phosphatase 105 U/L (46-116); Anion Gap 8.2 mmol/L (3-11); BUN 13 mg/dL (7-18); Bilirubin, Total 0.2 mg/dL (0.2-1.0); CO2 29.8 mmol/L (21.0-32.0); CREATININE 0.63 mg/dL (0.55-1.02); Calcium 9.2 mg/dL (8.5-10.1); Calculated LDL 181 mg/dL (<100); Chloride 100 mmol/L (98-107); Cholesterol 262 mg/dL (<200); Glucose 89 mg/dL (74-106); HDL Cholesterol 42 mg/dL (40-60); Potassium 4.9 mmol/L (3.5-5.1); Sodium 138 mmol/L (136-145); Total Protein 8.1 g/dL (6.4-8.2); Triglyceride 196 mg/dL (<150)
== END 2020-04-05 11:59 ==
LOC: NCHCN 11:39
PROVIDERS: PCP Physician Assistant Medical; Visit Provider Physician Assistant Medical
DX: E78.5 Hyperlipidemia, unspecified (principal)
CPT/HCPCS: 80053; 80061

== ENCOUNTER 2020-07-12 17:46 | Outpatient (REF) | payer OTHER, SELFPAY ==
[2020-07-14 14:34] LABS: COVID-19 RT-PCR Result NEGATIVE (Negative)
== END 2020-07-12 18:06 ==
LOC: NCHCN 17:46
PROVIDERS: PCP Physician Assistant Medical; Visit Provider Physician Assistant Medical
DX: J34.89 Other specified disorders of nose and nasal sinuses (principal)
CPT/HCPCS: U0003

== ENCOUNTER 2020-08-24 15:56 | Outpatient (REF) | payer OTHER, SELFPAY ==
[2020-08-26 16:13] LABS: SARS-CoV-2 RNA Not Detected (NotDetected); SARS-CoV-2 RNA Source Nasal/Nares
== END 2020-08-24 16:16 ==
LOC: NCHCN 15:56
PROVIDERS: PCP Physician Assistant Medical; Visit Provider Physician Assistant Medical
DX: Z11.59 Encounter for screening for other viral diseases (principal)
CPT/HCPCS: U0003

== ENCOUNTER 2021-04-06 14:20 | Emergency (ER) | payer SELFPAY ==
[2021-04-06 14:26] VITALS: BP 147/99; PULSE 82; RESP 18; TEMP 36.8; O2SAT 96
--- NOTE | 2021-04-06 14:30 | W.ED.GENAD ---
Discharge Plan Disposition Patient Disposition: HOME Condition: Stable Discharge Details Clinical Impression: Left thumb sprain Primary Care Provider: Juanita Perez ED Provider: Shirin Mathews Home Meds and New Rx's Prescriptions: No Action hydrochlorothiazide 25 MG tablet 25 mg PO DAILY RF: 0 bupropion HCl 300 MG tablet extended release 24 hr 450 mg PO DAILY RF: 0 buspirone 5 MG tablet 5 mg PO BID RF: 0 pregabalin [Lyrica] 100 MG capsule 150 mg PO HS RF: 0 zolpidem 12.5 MG tablet,ext release multiphase 12.5 mg PO HS RF: 0 omeprazole 40 mg Capsule,Delayed Release(Dr/Ec) 40 mg PO DAILY RF: 0 tramadol 100 mg Tablet Extended Release 24 Hr 100 mg PO BID RF: 0 rosuvastatin [Crestor] 5 mg Tablet 5 mg PO DAILY RF: 0 Discharge Instructions Instructions: Finger Sprain (ED) Additional Instructions: Follow up with primary care provider in 3-5 days. Return to ED sooner if any worsening or concerns. Increase oral fluids. Please take Tylenol or Ibuprofen with food every 4-6 hours as needed for pain and swelling. Rest ice compression elevation. Wear splint for comfort. Referrals: Claude Adams MD [ [facility] STAFF PHYSICIAN] - Return if symptoms worsen Juanita Perez PA [Primary Care Provider] - Medical Decision Making 50-year-old female presents to the ER chief complaint of left thumb pain. Patient reports that she had a hyperextension type injury while at work. 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 She continues to have pain. No obvious deformity or swelling noted on initial exam, no crepitus. CMS is intact distally. No other injuries or complaints noted. Patient is requesting an x-ray XR HAND LT COMPLETE EXAM: XR HAND LT COMPLETE CLINICAL HISTORY: left thumb pain, hyperextension injury. TECHNIQUE: 2D digital imaging was performed. COMPARISON: No exams were available for comparison FINDINGS: There is no evidence of acute fracture or dislocation. No osseous lesions. No radiopaque foreign body. Patient placed in a prefabricated thumb spica abduction splint. Instructed on [facility] procedures and home care, verbalized understanding. This text was generated using [employer] system, please disregard any oddities of phrase or misspellings. HPI General Mode of arrival: ambulatory. Date/Time Provider Initiated Documentation: 04/06/21 14:20. Limitations to Documentation: no limitations. Information obtained by: patient. HPI Narrative: 51-year-old female presents to the ER chief complaint of left thumb and wrist pain status post an injury while at work approximately 1 week ago. 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 She reports continued pain. No obvious deformity, swelling, erythema or crepitus. Distal CMS is intact. Patient is full range of motion of her thumb. She does have increased pain with opposition. Related Data Home Medications Medication Instructions Recorded Confirmed bupropion HCl 450 mg PO DAILY 06/01/13 04/06/21 hydrochlorothiazide 25 mg PO DAILY 06/01/13 04/06/21 buspirone 5 mg PO BID 05/25/17 04/06/21 pregabalin [Lyrica] 150 mg PO HS 12/17/17 04/06/21 zolpidem 12.5 mg PO HS 12/17/17 04/06/21 omeprazole 40 mg PO DAILY 11/08/19 04/06/21 tramadol 100 mg PO BID 11/08/19 04/06/21 rosuvastatin [Crestor] 5 mg PO DAILY 12/07/19 04/06/21 Allergies Allergy/AdvReac Type Severity Reaction Status Date / Time No Known Allergies Allergy Verified 04/06/21 14:31 General Stated Complaint: Orthopedic MARK: 4 Review of Systems All systems reviewed & are unremarkable except as noted in HPI and below Musculoskeletal Musculoskeletal: Denies back pain, Denies myalgias, Reports arthralgias (Left thumb pain) and Denies limited range of motion [facility] Medical History (Updated 04/06/21 @ 15:43 by Shirin Mathews) Depression hypertension Insomnia Morbid obesity Surgical History Cholecystectomy Ligation of fallopian tube Open Carpal Tunnel release Family History Mother No problems noted. Father No problems noted. Social History Smoking/Tobacco Use Status: Current every day Smoking risk assessment performed?: Yes Alcohol Intake: current Alcohol Intake frequency: a few times a week Drug use: Never Substance use type: does not use Do you feel safe at home: Yes Do you feel safe in your relationship?: Yes Exam Narrative Exam Narrative: Constitutional: Alert and oriented x3. Appears stated age. Normal body habitus. Head: Normocephalic, no trauma. Eyes: Eyelids symmetrical without lesions, discharge, or swelling. Chest: RRR, Normal S1, S2, distal pulses intact. Resp: Lungs clear to auscultation bilaterally, no wheezes, rales, or rhonchi. Musculoskeletal: Normal gait, 5/5 strength to all four extremities. Complaining of left thumb pain no ecchymosis swelling deformity or crepitus. Skin: No suspicious rashes or lesions. Capillary refill less than 2 sec. Hematologic/Lymphatic: No ecchymosis, no lymphadenopathy. Course Vital Signs Vital signs: Vital Signs Temperature 36.8 C 04/06/21 14:26 Pulse 82 04/06/21 14:26 Respiratory Rate 18 04/06/21 14:26 Blood Pressure 147/99 H 04/06/21 14:26 Pulse Oximetry 96 04/06/21 14:26 Temperature 36.8 C 04/06/21 14:26 Temperature Source Temporal Artery Scan 04/06/21 14:26 Pulse 82 04/06/21 14:26 Respiratory Rate 18 04/06/21 14:26 Blood Pressure 147/99 H 04/06/21 14:26 Blood Pressure Position Sitting 04/06/21 14:26 Pulse Oximetry 96 04/06/21 14:26 Oxygen Delivery Method Room Air 04/06/21 14:26 Oxygen Flow Rate 0 04/06/21 14:26 Pain Level 6 04/06/21 14:26
--- NOTE | 2021-04-06 14:46 | DI.RAD_ITS ---
Exam(s) XR HAND LT COMPLETE EXAM: XR HAND LT COMPLETE CLINICAL HISTORY: left thumb pain, hyperextension injury. TECHNIQUE: 2D digital imaging was performed. COMPARISON: No exams were available for comparison FINDINGS: There is no evidence of acute fracture or dislocation. No osseous lesions. No radiopaque foreign alley dy. IMPRESSION: DATA REPOSITORY: RADIATION DOSE DELIVERED:
== END 2021-04-06 23:30 | disposition home or self-care (01) ==
PROVIDERS: Emergency Provider Registered Nurse Emergency; PCP Physician Assistant Medical
DX: S63.682A Other sprain of left thumb, initial encounter (principal); X50.1XXA Overexertion from prolonged static or awkward postures, initial encounter; Y99.0 Civilian activity done for income or pay
CPT/HCPCS: 29125; 99283; 73130

== ENCOUNTER 2021-05-16 09:17 | Outpatient (REF) | payer OTHER, SELFPAY ==
--- NOTE | 2021-05-16 09:00 | PAPFT_PTH ---
PATIENT: Marilyn Siddiqui LOC: [facility]#:[id number] AGE/SX: 51/F ROOM: RE05/16/[address]: Juanita Perez : 1970 BED: DIS: 05/16/2021 SPEC #: [id number] RECD: 05/17/21 12:53 STATUS: ESTHELA REQ #: [id number] DAYANNA: 05/16/21 09:[address]: Juanita Perez DEPT: [facility] Cytology RECD BY: Cari Kilpatrick Tissues: 1 - CX/ENDOCX FOR PAP SMEARS Procedures: PAP THIN PREP/UVM Screening HPV DNA PROBE Comments: [id number] (HPV 16 & 18/45)
[2021-05-16 13:42] LABS: ALT 21 U/L (14-59); AST 14 U/L (15-37); Albumin 3.9 g/dL (3.4-5.0); Alkaline Phosphatase 99 U/L (46-116); Anion Gap 9.7 mmol/L (3-11); BUN 11 mg/dL (7-18); Bilirubin, Total 0.3 mg/dL (0.2-1.0); CO2 29.3 mmol/L (21.0-32.0); CREATININE 0.7 mg/dL (0.55-1.02); Calcium 9.1 mg/dL (8.5-10.1); Calculated LDL 161 mg/dL (<100); Chloride 102 mmol/L (98-107); Cholesterol 243 mg/dL (<200); Glucose 90 mg/dL (74-106); HDL Cholesterol 46 mg/dL (40-60); Potassium 4.3 mmol/L (3.5-5.1); Sodium 141 mmol/L (136-145); Total Protein 7.7 g/dL (6.4-8.2); Triglyceride 184 mg/dL (<150)
== END 2021-05-16 09:18 | disposition home or self-care (01) ==
LOC: NCHCN 09:17
PROVIDERS: PCP Physician Assistant Medical; Visit Provider Physician Assistant Medical
DX: E78.5 Hyperlipidemia, unspecified (principal); Z12.4 Encounter for screening for malignant neoplasm of cervix; Z11.51 Encounter for screening for human papillomavirus (HPV); R87.810 Cervical high risk human papillomavirus (HPV) DNA test positive; Z01.419 Encounter for gynecological examination (general) (routine) without abnormal findings
CPT/HCPCS: 80053; 80061; 88142; 87624